=== PATIENT | male | born 1955 | race Caucasian/White ===

== ENCOUNTER 2019-04-18 14:04 | Outpatient (CLI) | payer OTHER, SELFPAY ==
--- NOTE | ~2019-04-18 | XR_ITS ---
EXAMINATION: XR chest 2V EXAM DATE: 04/18/2019 14:34 INDICATION: Left lateral chest pain. TECHNIQUE: Frontal and lateral projections of the chest obtained and reviewed. Comparison is made to prior examination from 02/26/2017. FINDINGS: Patient has diffuse idiopathic skeletal hyperostosis (DISH). The lungs are clear. There a re no pleural effusions. The cardiomediastinal silhouette is within normal limits. There is no pneu mothorax suspected. The bones and soft tissues are unremarkable. IMPRESSION: No acute cardiopulmonary findings. Reviewed, dictated and finalized at location B. 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
== END 2019-04-18 14:05 | disposition home or self-care (01) ==
PROVIDERS: PCP Internal Medicine; Visit Provider Internal Medicine
DX: R07.9 Chest pain, unspecified (principal)
CPT/HCPCS: 71046

== ENCOUNTER 2020-10-08 10:46 | Outpatient (CLI) | payer OTHER, SELFPAY ==
--- NOTE | ~2020-10-08 | XR_ITS ---
EXAMINATION: XR hand LT min 3V DATE: 10/08/2020 11:23 INDICATION: Pain at the base of the left thumb TECHNIQUE: Posteroanterior, oblique and lateral views of the left hand were obtained. COMPARISON: None. FINDINGS: Bone alignment is normal. No fracture. Polyarticular osteoarthritis, mild to moderate severity at the second and third distal interphalangeal joints and minimal to mild at the triscaphe, first carpometa carpal and multiple metacarpophalangeal and interphalangeal joints. No erosions to suggest inflammato ry arthritis. IMPRESSION: 1. 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 Reviewed, dictated and finalized at location A. IMPRESSION: 1. 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
== END 2020-10-08 10:47 | disposition home or self-care (01) ==
LOC: CHSIMG 10:48
PROVIDERS: PCP Internal Medicine; Visit Provider Internal Medicine
DX: M79.645 Pain in left finger(s) (principal)
CPT/HCPCS: 73130

== ENCOUNTER 2021-01-24 10:16 | Outpatient (CLI) | payer OTHER, SELFPAY ==
[2021-01-24 11:16] LABS: Influenza A QL RT-PCR Negative (Negative); Influenza B QL RT-PCR Negative (Negative); SARS-CoV-2 RNA PCR Negative (Negative)
== END 2021-01-24 10:17 | disposition home or self-care (01) ==
LOC: CHSLAB 10:17
PROVIDERS: PCP Internal Medicine; Visit Provider Internal Medicine
DX: J06.9 Acute upper respiratory infection, unspecified (principal); Z20.822 Contact with and (suspected) exposure to COVID-19
CPT/HCPCS: 87502; C9803; U0003; U0005

== ENCOUNTER 2022-03-23 14:53 | Outpatient (CLI) | payer MEDICARE, SELFPAY ==
--- NOTE | ~2022-03-23 | XR_ITS ---
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 RESULT: Lines, tubes, and devices: None. Lungs and pleura: Clear. Cardiomediastinal silhouette: Stable. Other: No acute osseous or upper abdominal finding. IMPRESSION: No acute cardiopulmonary process. Reviewed, dictated and finalized at location K. SERVICE SUPERVISOR
[2022-03-23 15:15] LABS: Basophils Absolute Auto 0.04 K/mm3 (0.00-0.10); Basophils Percent Auto 0.6 % (0.0-1.0); Eosinophils Absolute Auto 0.23 K/mm3 (0.02-0.50); Eosinophils Percent Auto 3.7 % (1.0-6.0); Hematocrit 39.1 % (37.0-46.0); Hemoglobin 13.3 g/dL (12.4-15.3); Immature Granulocyte Absolute 0.03 K/mm3 (0.00-0.00); Immature Granulocyte Percent A 0.5 % (0.0-0.0); Lymphocytes Absolute Auto 1.41 K/mm3 (1.10-4.50); Lymphocytes Percent Auto 22.7 % (18.0-42.0); Mean Corpuscular Hemoglobin 28.2 pg (27.0-31.0); Mean Platelet Volume 12.2 fl (8.7-11.0); Monocytes Absolute Auto 0.62 K/mm3 (0.10-0.90); Neutrophils Absolute Auto 3.9 K/mm3 (1.7-7.2); Neutrophils Percent Auto 62.5 % (50.0-70.0); Platelet Count Result 201 K/mm3 (150-420); Red Blood Count 4.71 M/mm3 (4.70-6.10); Red Cell Distribution Width 15.7 % (11.6-14.4); White Blood Count 6.2 K/mm3 (4.8-10.8)
[2022-03-23 15:19] LABS: Add Urine Microscopic? NO; Appearance Urine Clear (Clear); Bilirubin Urine Negative (Negative); Blood Urine Negative (Negative); Color Urine Light Yellow (Yellow); Glucose Urine UA Negative (Negative); Ketones Urine Negative (Negative); Leukocyte Esterase Ur Negative (Negative); Nitrate Urine Negative (Negative); Protein Urine Negative (Negative); Specific Grav Ur 1.015 (1.010-1.020); Urobilinogen Urine 0.2 mg/dL (0.2-1.0)
[2022-03-23 15:58] LABS: Alanine Aminotransferase 23 U/L (16-63); Albumin Level 3.8 g/dL (3.4-5.0); Alkaline Phosphatase 72 U/L (46-116); Anion Gap 9 mmol/L (8-16); Aspartate Amino Transferase 18 U/L (15-37); Bilirubin,Total 0.6 mg/dL (0.00-1.00); Blood Urea Nitrogen 18 mg/dL (7-18); Calcium 9.1 mg/dL (8.5-10.1); Carbon Dioxide 28 mmol/L (21-32); Chloride 104 mmol/L (98-108); Estimated Glomerular Filt Rate 57; Glucose 98 mg/dL (70-99); Osmolality Calculated 293 mOsm/kg (285-295); Potassium 5.2 mmol/L (3.5-5.1); Sodium 141 mmol/L (136-145)
== END 2022-03-23 14:54 | disposition home or self-care (01) ==
LOC: CHSLAB 14:58
PROVIDERS: PCP Internal Medicine; Visit Provider Internal Medicine
DX: R10.12 Left upper quadrant pain (principal)
CPT/HCPCS: 36415; 71046; 80053; 81003; 85025

== ENCOUNTER 2022-03-24 08:24 | Outpatient (CLI) | payer MEDICARE, SELFPAY ==
--- NOTE | ~2022-03-24 | CT_ITS ---
EXAMINATION: CT abdomen pelvis w con INDICATION: Left upper quadrant and flank pain TECHNIQUE: Computed tomographic images of the abdomen and pelvis were obtained after the administrati on of 100 cc of Omnipaque 350 intravenous contrast. The dose-length product (DLP) was 1505.87 mGy-cm. Automated exposure control and iterative reconstruction technique were employed. COMPARISON: None available FINDINGS: The lung bases are clear. The heart size is normal. The liver, spleen, gallbladder, and adr enal glands are normal. Punctate calcifications of the pancreas are consistent with chronic pancreati tis. Cysts of the kidneys measure up to 8 mm on the left. No pathologically enlarged abdominal or pel monique lymph nodes are identified. There is no free intraperitoneal gas or evidence of bowel obstruction . The appendix is normal. There is severe lumbar spondylosis. IMPRESSION: 1. No CT correlate for the patient's symptoms. Reviewed, dictated and finalized at location L. 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
== END 2022-03-24 08:25 | disposition home or self-care (01) ==
LOC: CHSIMG 08:26
PROVIDERS: PCP Internal Medicine; Visit Provider Internal Medicine
DX: R10.12 Left upper quadrant pain (principal)
CPT/HCPCS: 74177; Q9967

== ENCOUNTER 2022-08-31 11:51 | Outpatient (CLI) | payer MEDICARE, SELFPAY ==
--- NOTE | ~2022-08-31 | XR_ITS ---
EXAMINATION: XR lumbar spine 2-3V DATE: 08/31/2022 12:33 INDICATION: Acute low back pain TECHNIQUE: Anteroposterior and lateral views of the lumbar spine, and cone-down lateral view of the l umbosacral junction were obtained. COMPARISON: 10/17/2015 FINDINGS: Again noted are laminectomies from L2 through L5. There are 14 degrees of lumbar levoscolio sis. There is severe loss of intervertebral disc space height at L3-4 and moderate loss of interverte bral disc space height throughout the remainder of the lumbar spine without change. There are 4 mm of retrolisthesis of L2 on L3 and L3 on L4. The vertebral body heights are maintained. There is no frac ture. Small degenerative osteophytes project from the anterior endplates of multiple vertebral bodies . There is severe facet joint osteoarthritis of the lower lumbar spine. IMPRESSION: 1. Severe lumbar spondylosis without acute findings or significant interval change. Reviewed, dictated and finalized at location B. IMPRESSION: 1. Severe lumbar spondylosis without acute findings or significant interval renate nge.
== END 2022-08-31 11:52 | disposition home or self-care (01) ==
PROVIDERS: PCP Internal Medicine; Visit Provider Internal Medicine
DX: M54.50 Low back pain, unspecified (principal); M43.06 Spondylolysis, lumbar region
CPT/HCPCS: 72100

== ENCOUNTER 2022-09-02 14:39 | Outpatient (CLI) | payer MEDICARE, SELFPAY ==
--- NOTE | ~2022-09-02 | XR_ITS ---
EXAMINATION: XR thoracic spine 3V DATE: 09/02/2022 15:07 INDICATION: Ankylosing spondylitis. Back pain. TECHNIQUE: 3 views of thoracic spine on 4 radiographs were obtained. COMPARISON: CT abdomen and pelvis 03/24/2022 FINDINGS: There is 10 degrees dextroscoliosis of lower thoracic spine. Vertebral body heights are nor mal. There is mildly decreased disc height at multiple levels in thoracic spine. There are bridging e ndplate osteophytes at multiple levels in the spine, consistent with diffuse idiopathic skeletal hype rostosis (DISH). IMPRESSION: 1. Mild thoracic spondylosis. 2. Thoracic dextroscoliosis. 3. DISH. Reviewed, dictated and finalized at location E.
--- NOTE | ~2022-09-02 | XR_ITS ---
EXAMINATION: XR_CERV2-3V_CR DATE: 09/02/2022 15:07 INDICATION: Neck pain. Ankylosing spondylitis. TECHNIQUE: 4 views of cervical spine were obtained. COMPARISON: None. FINDINGS: There is kyphosis of cervical spine. Vertebral body heights are normal. There is mildly dec reased disc height at C3-C4 and C4-C5 and moderately decreased disc height at C5-C6 and C6-C7. There are bulky anterior osteophytes from C4-C5 through C6-C7. There is multilevel uncovertebral joint oste oarthritis, severe on the left at C4-C5 and bilaterally at C5-C6 and C6-C7. There is multilevel mild facet joint osteoarthritis. There is likely facet joint ankylosis at C2-C3. The osseous central spina l canal is developmentally small. No prevertebral soft tissue swelling. IMPRESSION: 1. Moderate cervical spondylosis. Reviewed, dictated and finalized at location E.
== END 2022-09-02 14:40 | disposition home or self-care (01) ==
PROVIDERS: PCP Internal Medicine; Visit Provider Internal Medicine
DX: M45.0 Ankylosing spondylitis of multiple sites in spine (principal); M41.84 Other forms of scoliosis, thoracic region; M48.14 Ankylosing hyperostosis [Forestier], thoracic region
CPT/HCPCS: 72040; 72072

== ENCOUNTER 2022-09-05 10:10 | Outpatient (CLI) | payer MEDICARE, SELFPAY | END 2022-09-05 10:11 | disposition home or self-care (01) | PROVIDERS: PCP Internal Medicine; Visit Provider Internal Medicine | DX: M54.50 Low back pain, unspecified (principal); M54.16 Radiculopathy, lumbar region | CPT/HCPCS: 99199 ==

== ENCOUNTER → 2022-09-09 10:38 | Outpatient (CLI) | payer MEDICARE, SELFPAY ==
--- NOTE | ~2022-09-09 | MR_ITS ---
MRI of the lumbar spine Clinical History: Pain Technique: Axial T2-weighted images, and sagittal T1-weighted, T2-weighted, and and T2 fat-sat images were acquired. COMPARISON: 10/30/2015 Findings: 4 mm retrolisthesis of L2 over L3 present. 5 mm retrolisthesis of L3 over L4 present. No fr acture identified. No suspicious bone marrow signal abnormality. At L1-L2, there is mild diffuse disc bulge and moderate facet arthropathy. No central canal stenosis or definite neural foraminal narrowing. At L2-L3, there is advanced degenerative disc narrowing. There is diffuse disc bulge and moderate to advanced facet arthropathy. L2 laminectomy defect is present. No central canal stenosis. There is sev ere right neural foraminal narrowing, and mild left neural foraminal narrowing. At L3-L4, there is severe degenerative disc narrowing. There is diffuse disc bulge and severe facet a rthropathy. There is posterior laminectomy/decompression, without fausto central canal stenosis. There is severe bilateral neural foraminal narrowing, right worse than left. At L4-L5, there is diffuse disc bulge and advanced facet arthropathy. There is probable mild central canal stenosis despite posterior decompression/lumpectomy. There is severe bilateral neural foraminal narrowing. At L5-S1, there is diffuse disc bulge and moderate to advanced facet arthropathy. There is posterior decompression/laminectomy. No central canal stenosis. There is moderate to advanced left neural jeannine inal narrowing. Right neural foramen preserved. Paravertebral soft tissues are otherwise unremarkable. Impression: 4 mm retrolisthesis of L2 over L3. 5 mm retrolisthesis of L3 over L4. Prior laminectomies of L3, L4, L5. Multilevel severe neural foraminal narrowing, as detailed above. Probable mild central canal stenosis at L4-L5, despite posterior decompression. Reviewed, dictated and finalized at [facility]. Impression: 4 mm retrolisthesis of L2 over L3. 5 mm retrolisthesis of L3 over L4. Prior laminectomies of L3, L4, L5. Multilevel severe neural foraminal narrowing, as detailed above. Probable mild central canal stenosis at L4-L5, despite posterior decompression.
== END ==
PROVIDERS: PCP Internal Medicine; Visit Provider Internal Medicine
DX: M54.50 Low back pain, unspecified (principal); M96.1 Postlaminectomy syndrome, not elsewhere classified
CPT/HCPCS: 72148

== ENCOUNTER 2022-12-10 01:31 | Day surgery (SDC) | payer MEDICARE, SELFPAY ==
[2022-12-01 14:41] VITALS: BMI 40.4
[2022-12-10 06:23] VITALS: BP 162/80; PULSE 65; RESP 20; TEMP 36.2; O2SAT 98; BMI 40.2
[2022-12-10] MEDS: LACTATED RINGERS 1,000 ML 150 ML IV CONT (06:33)
--- NOTE | 2022-12-10 07:26 | P.PNAN_ITS ---
Anes - Initial Pre Proc Eval Procedure: Operation Date: 12/10/22 07:30 Proposed Procedures p Screening Colonoscopy - Milan Arthur DO Date/Time: 12/10/22 07:26 Surgeon: Milan Arthur DO Pre Op Diagnosis: neoplasm screening Patient Data Age: 67 Gender: M Height: 1.8 m Weight: 130.9 kg Last Vital Signs Temp 97.2 F L 12/10/22 06:23 Pulse 65 12/10/22 06:23 Resp 20 12/10/22 06:23 BP 162/80 H 12/10/22 06:23 Pulse Ox 98 12/10/22 06:23 O2 Del Method Room Air 12/10/22 06:23 Allergies Allergy/AdvReac Type Severity Reaction Status Date / Time No Known Allergies Allergy Verified 12/10/22 06:22 Home Medications Medication Instructions Recorded Confirmed Type BuSpar 15 mg PO DAILY 12/01/22 12/10/22 History lisinopril 40 mg tablet 40 mg PO DAILY 12/01/22 12/01/22 History metoprolol succinate 100 mg 100 mg PO DAILY 12/01/22 12/01/22 History tablet,extended release 24 hr nifedipine 60 mg PO BID 12/01/22 12/10/22 History potassium chloride 10 meq BYMOUTH ONCE 12/01/22 12/01/22 History Patient hx anesthesia problems: none Family hx anesthesia problems: none Results Review: All pre-operative results and documents have been reviewed as part of the pre- operative evaluation. PMFSH Social History Social History Smoking status: Never smoker Drinks per week: 1 Substance use type: does not use Living arrangements: with family Spiritual care concerns: No Anes - Eval Final PreProcedure Day of Procedure 12/10/22 07:26 Patient weight: morbidly obese Heart: regular rate and rhythm Lungs: clear to auscultation Airway: Mallampati scale class II Neurological: alert and oriented Last oral intake: >/= 8 hours ASA classification: III Emergent: no Anesthetic plan: proceed Anesthesia type and monitoring: general GIVS and standard monitoring Results Review: All pre-operative results and documents have been reviewed as part of the pre- operative evaluation. Informed Consent: The patient's anesthetic plan and its attendant risks and benefits were discussed with the patient/family/POA. Questions were solicited and answers provided to the satisfaction of the patient/family/POA.
--- NOTE | 2022-12-10 07:28 | PM.IMHP ---
H&P: HPI History of Present Illness Date/Time: 12/10/22 07:28 Chief Complaint: Family history of colon cancer Narrative: This is a 67-year-old man who presents for colonoscopy. His last colonoscopy was about 5 years ago. He has a family history of colon cancer in his father. He denies any hematochezia or melena. He denies any change bowel habits. Review of Systems Review of Systems: All systems reviewed & are unremarkable except as noted in HPI and below Constitutional: Constitutional: Denies chills, Denies fever(s), Denies headache(s) and Denies weight loss Eyes: Eyes: Denies change in vision ENT: Denies dizziness, Denies headache(s), Denies neck mass and Denies throat swelling Cardiovascular: Cardiovascular: Denies chest pain, Denies lightheadedness and Denies dyspnea Respiratory: Respiratory: Denies cough, Denies dyspnea and Denies wheezing Gastrointestinal: Gastrointestinal: Denies abdominal pain, Denies change in bowel habits, Denies nausea and Denies vomiting Genitourinary: Genitourinary: Denies hematuria and Denies dysuria Musculoskeletal: Musculoskeletal: Reports as per HPI Integumentary/Breasts: Skin/Breast: Reports as per HPI Neurologic: Denies dizziness and Denies headache(s) Allergic/Immunologic: Allergic/Immunologic: Denies throat swelling and Denies wheezing PMFSH Social History Social History Smoking status: Never smoker Drinks per week: 1 Substance use type: does not use Living arrangements: with family Spiritual care concerns: No Meds Home Medications and Allergies Home Medications Medication Instructions Recorded Confirmed Type BuSpar 15 mg PO DAILY 12/01/22 12/10/22 History lisinopril 40 mg tablet 40 mg PO DAILY 12/01/22 12/01/22 History metoprolol succinate 100 mg 100 mg PO DAILY 12/01/22 12/01/22 History tablet,extended release 24 hr nifedipine 60 mg PO BID 12/01/22 12/10/22 History potassium chloride 10 meq BYMOUTH ONCE 12/01/22 12/01/22 History Allergies Allergy/AdvReac Type Severity Reaction Status Date / Time No Known Allergies Allergy Verified 12/10/22 06:22 Vital Signs Vital Signs - 24 hr 12/10/22 06:23 Temperature 36.2 C L Pulse Rate 65 Respiratory Rate 20 Blood Pressure 162/80 H Pulse Oximetry 98 Oxygen Delivery Room Air Exam Const: General: no acute distress and alert Orientation/consciousness: patient oriented x3 HENMT: Head: normocephalic and atraumatic Ears: hearing grossly normal bilaterally Face/Nose/Sinus: Normal nares present Mouth: Yes Normal oral and palatal mucosa present Eyes: Periorbital: periorbital findings normal Sclera: sclerae normal EOM: EOMs intact bilaterally Neck: Neck: normal visual inspection, no lymphadenopathy and trachea midline Chest: Chest palpation & inspection: normal inspection of the chest Resp: Effort & Inspection: normal respiratory effort Auscultation: clear to auscultation bilaterally Cardio: Jugular venous distension: no JVD Rate: regular rate Rhythm: regular rhythm Heart sounds: S1 normal heart sound present and S2 normal heart sound present Peripheral pulses: Peripheral pulses 2+ throughout GI: Inspection: normal to inspection GI Palp: Yes Soft to palpation, No Tenderness to palpation present (GI), No Guarding due to palpation present (GI) and No Rebound tenderness present Percussion: Yes normal to percussion Auscultation: normal bowel sounds : General: Yes no CVA tenderness Back/Spine/Pelvis: Back: no CVA tenderness Neuro: General: patient oriented x3, no focal motor deficits and CN's II-XI intact bilaterally Cognition (Neuro): normal cognition Speech: normal speech Motor exam (neuro): 5/5 motor strength present throughout Extrem: General: capillary refill normal and no clubbing, cyanosis or edema Assessment and Plan Assessment and plan (1) Family history of colon cancer: Code(s): Z80.0 - Family history of malignant neoplasm of digestive organs
[2022-12-10 07:50] VITALS: BP 96/52; PULSE 52; RESP 16; O2SAT 94
[2022-12-10 08:00] VITALS: BP 102/60; PULSE 53; RESP 17; O2SAT 98
[2022-12-10 08:10] VITALS: BP 113/67; PULSE 53; RESP 20; O2SAT 98
== END 2022-12-10 08:20 | disposition home or self-care (01) ==
PROVIDERS: PCP Internal Medicine; Visit Provider Surgery
PROC: 0DJD8ZZ Inspection of Lower Intestinal Tract, Via Natural or Artificial Opening Endoscopic (ICD-10-PCS; CPT 45378; principal; 2022-12-10 07:30)
DX: Z12.11 Encounter for screening for malignant neoplasm of colon (principal); D12.4 Benign neoplasm of descending colon; Z80.0 Family history of malignant neoplasm of digestive organs; E66.01 Morbid (severe) obesity due to excess calories; Z68.41 Body mass index [BMI] 40.0-44.9, adult
CPT/HCPCS: 45380; 88305; J2704; J7120

== ENCOUNTER 2024-05-08 08:53 | Outpatient (CLI) | payer MEDICARE, SELFPAY ==
[2024-05-08 09:12] LABS: Basophils Absolute Auto 0.05 K/mm3 (0.00-0.10); Basophils Percent Auto 0.8 % (0.0-1.0); Eosinophils Absolute Auto 0.26 K/mm3 (0.02-0.50); Eosinophils Percent Auto 4.1 % (1.0-6.0); Hematocrit 41.5 % (37.0-46.0); Hemoglobin 13.5 g/dL (12.4-15.3); Immature Granulocyte Absolute 0.02 K/mm3 (0.00-0.00); Immature Granulocyte Percent A 0.3 % (0.0-0.0); Lymphocytes Absolute Auto 1.77 K/mm3 (1.10-4.50); Lymphocytes Percent Auto 27.8 % (18.0-42.0); Mean Corpuscular HGB Conc 32.5 g/dL (32-36); Mean Platelet Volume 11.7 fl (8.7-11.0); Neutrophils Absolute Auto 3.57 K/mm3 (1.70-7.20); Platelet Count Result 227 K/mm3 (150-420); Red Cell Distribution Width 15.8 % (11.6-14.4); White Blood Count 6.4 K/mm3 (4.8-10.8)
[2024-05-08 09:21] LABS: Hemoglobin A1C 5.2 % (<5.7)
[2024-05-08 09:29] LABS: Add Urine Microscopic? NO; Appearance Urine Clear (Clear); Bilirubin Urine Negative (Negative); Blood Urine Negative (Negative); Color Urine Light Yellow (Yellow); Glucose Urine UA Negative (Negative); Ketones Urine Negative (Negative); Leukocyte Esterase Ur Negative (Negative); Nitrate Urine Negative (Negative); Protein Urine Negative (Negative); Urobilinogen Urine 0.2 mg/dL (0.2-1.0)
[2024-05-08 10:31] LABS: Erythrocyte Sedimentation Rate 15 mm/hr (0-20)
[2024-05-08 10:36] LABS: Alanine Aminotransferase 23 U/L (16-63); Albumin Level 3.9 g/dL (3.4-5.0); Alkaline Phosphatase 91 U/L (46-116); Anion Gap 4 mmol/L (4-12); Aspartate Amino Transferase 14 U/L (15-37); Bilirubin,Total 0.6 mg/dL (0.00-1.00); Blood Urea Nitrogen 18 mg/dL (7-18); CRP 0.8 mg/dL (0.0-0.9); Calcium 9.2 mg/dL (8.5-10.1); Carbon Dioxide 32 mmol/L (21-32); Chloride 104 mmol/L (98-108); Cholesterol 220 mg/dL (0-200); Creatine Kinase 103 U/L (39-308); Estimated Glomerular Filt Rate 55; Glucose 96 mg/dL (70-99); HDL Direct 73 mg/dL (40-60); LDL Cholesterol Calculated 122 mg/dL (<130); Osmolality Calculated 291 mOsm/kg (285-295); Prostate Specific Antigen 1.3 ng/mL (< OR = 4.0); Sodium 140 mmol/L (136-145); Total Protein 7.2 g/dL (6.4-8.2); Triglycerides 126 mg/dL (0-150)
== END 2024-05-08 08:54 | disposition home or self-care (01) ==
LOC: CHSLAB 08:56
PROVIDERS: PCP Internal Medicine; Visit Provider Internal Medicine
DX: R73.01 Impaired fasting glucose (principal); I10 Essential (primary) hypertension; E78.2 Mixed hyperlipidemia; M12.80 Other specific arthropathies, not elsewhere classified, unspecified site; Z12.5 Encounter for screening for malignant neoplasm of prostate
CPT/HCPCS: 36415; 80053; 80061; 81003; 82550; 83036; 84153; 85025; 85652; 86140; G0103

== ENCOUNTER 2024-11-02 09:41 | Outpatient (CLI) | payer MEDICARE, SELFPAY ==
[2024-11-02 10:11] LABS: Hematocrit 39.4 % (37.0-46.0); Hemoglobin 13.1 g/dL (12.4-15.3); Mean Corpuscular HGB Conc 33.2 g/dL (32-36); Mean Corpuscular Hemoglobin 27.6 pg (27.0-31.0); Mean Corpuscular Volume 83.1 fL (78.0-102.0); Platelet Count Result 195 K/mm3 (150-420); Red Blood Count 4.74 M/mm3 (4.70-6.10); White Blood Count 6.6 K/mm3 (4.8-10.8)
[2024-11-02 10:22] LABS: Add Urine Microscopic? NO; Appearance Urine Clear (Clear); Glucose Urine UA Negative (Negative); Leukocyte Esterase Ur Negative (Negative); Nitrate Urine Negative (Negative); Specific Grav Ur <= 1.005 (1.010-1.020)
[2024-11-02 10:38] LABS: Hemoglobin A1C 5.2 % (<5.7)
[2024-11-02 10:43] LABS: Alanine Aminotransferase 23 U/L (6-50); Albumin Level 4.4 g/dL (3.5-5.1); Alkaline Phosphatase 64 U/L (38-126); Anion Gap 9 mmol/L (4-12); Aspartate Amino Transferase 33 U/L (17-59); Bilirubin,Total 0.9 mg/dL (0.2-1.3); Blood Urea Nitrogen 19 mg/dL (9-20); CRP 0.8 mg/dL (<1.0); Calcium 9.7 mg/dL (8.4-10.2); Carbon Dioxide 27 mmol/L (22-30); Chloride 102 mmol/L (98-107); Cholesterol 214 mg/dL (0-200); Estimated Glomerular Filt Rate 53; Glucose 100 mg/dL (65-110); HDL Direct 69 mg/dL; Osmolality Calculated 288 mOsm/kg (285-295); Potassium 5.5 mmol/L (3.4-5.0); Sodium 138 mmol/L (137-145); Total Protein 6.9 g/dL (6.3-8.2); Triglycerides 133 mg/dL (<150)
== END 2024-11-02 09:42 | disposition home or self-care (01) ==
PROVIDERS: PCP Internal Medicine; Visit Provider Internal Medicine
DX: I10 Essential (primary) hypertension (principal); E78.2 Mixed hyperlipidemia; R73.01 Impaired fasting glucose; M12.80 Other specific arthropathies, not elsewhere classified, unspecified site
CPT/HCPCS: 36415; 80053; 80061; 81003; 83036; 85027; 85652; 86140

== ENCOUNTER 2024-11-14 15:00 | Outpatient (CLI) | payer MEDICARE, SELFPAY ==
--- NOTE | ~2024-11-14 | XR_ITS ---
XR thoracic spine 3V Indication: BACK PAIN Comparison: None Findings: Moderate loss of vertebral height throughout, no fracture or subluxation. Moderate to severe loss of disc height throughout. Soft tissues unremarkable Impression: No acute abnormality. Reviewed, dictated and finalized at location A. Impression: No acute abnormality.
--- NOTE | ~2024-11-14 | XR_ITS ---
XR lumbar spine 2-3V Indication: BACK PAIN Comparison: None Findings: Levoconvex scoliosis with laminectomy noted. Moderate loss of vertebral height throughout. Grade 1 retrolisthesis L2 on L3 and L3 on L4, no acute fracture. Moderate to severe loss of disc height throughout. Soft tissues unremarkable Impression: No acute abnormality. Reviewed, dictated and finalized at location A. Impression: No acute abnormality.
== END 2024-11-14 15:01 | disposition home or self-care (01) ==
LOC: CHSIMG 15:01
PROVIDERS: PCP Internal Medicine; Visit Provider Nurse Practitioner Family
DX: M54.50 Low back pain, unspecified (principal)
CPT/HCPCS: 72072; 72100

== ENCOUNTER 2024-12-21 10:39 | Outpatient (CLI) | payer MEDICARE, SELFPAY ==
--- NOTE | ~2024-12-21 | XR_ITS ---
PROCEDURE(S): 3 views right knee INDICATION(S): Pain COMPARISON(S): None. TECHNIQUE: 3 radiographic images were submitted for interpretation. FINDINGS: Bones: There are no fractures seen. There is the appearance of sclerosis, mainly on the lateral view, projected over the proximal tibia and fibula. Joints: There are no dislocations identified. There is minimal osteoarthritic type change of the lateral compartment. There are mild such changes in the medial compartment, and perhaps a mild degree in the patellofemoral compartment. There is a mild amount of joint fluid. IMPRESSION: Degenerative change in mild amount of joint fluid possible sclerotic lesion or lesions proximal tibia or fibula. If the patient is symptomatic in this region, obtain MR. Reviewed, dictated and finalized at location A. IMPRESSION: Degenerative change in mild amount of joint fluid possible scleroti c lesion or lesions proximal tibia or fibula. If the patient is symptomatic in this region, obtain MR.
== END 2024-12-21 10:40 | disposition home or self-care (01) ==
PROVIDERS: PCP Internal Medicine; Visit Provider Internal Medicine
DX: M25.561 Pain in right knee (principal); M25.461 Effusion, right knee
CPT/HCPCS: 73562

== ENCOUNTER 2025-02-05 13:59 | Outpatient (CLI) | payer MEDICARE, SELFPAY ==
--- NOTE | ~2025-02-05 | MR_ITS ---
EXAMINATION: MR knee RT wo con DATE: 02/05/2025 14:37 INDICATION: Knee pain TECHNIQUE: Magnetic resonance imaging (MRI) of the knee was performed without intravenous contrast. Sequences included axial PD-weighted FS FSE, coronal PD- weighted FSE and PD-weighted FS FSE, sagittal PD-weighted FSE, and sagittal T2- weighted FS FSE. COMPARISON: None. FINDINGS: No fracture subluxation or dislocation. Moderate tricompartmental osteoarthritic degenerative changes present with several areas of advanced cartilaginous erosion, especially involving the medial compartment and patellofemoral joint. No subchondral cystic changes or osteochondral defects. Small joint effusion. Horizontal tear involving the posterior horn of the medial meniscus extends from the root along the margin and extending anteriorly to the inferior surface. Most of the anterior horn appears intact, mildly displaced anteriorly by joint space narrowing and spur formation. Mild meniscocapsular separation may also be present as seen on coronal image 16 series 5. Small cyst formation present suggesting subacute or chronic component. The lateral meniscus appears intact. The cruciate ligaments appear intact, although the ACL fibers are diminutive and have trace amounts of hyperintense T2-weighted signal. Collateral ligaments intact. Extra articular soft tissues including quadriceps and infrapatellar tendons appear intact. IMPRESSION: 1. Complex medial meniscal tear involving the posterior horn extending from the root to the margin of the anterior horn and including subacute possibly chronic meniscocapsular separation. 2. Advanced osteoarthritic degenerative changes in the medial compartment with milder changes at the patellofemoral joint and lateral joint space. 3. Mildly abnormal signal in the ACL may represent mild sprain or partial- thickness tear. Reviewed, dictated and finalized at location A. [employer] INTERNSHIP IMPRESSION: 1. Complex medial meniscal tear involving the posterior horn extending from the root to the margin of the anterior horn and including subacute possibly chroni c meniscocapsular separation. 2. Advanced osteoarthritic degenerative changes in the medial compartment with milder changes at the patellofemoral joint and lateral joint space. 3. Mildly abnormal signal in the ACL may represent mild sprain or partial-thick ness tear.
== END 2025-02-05 14:00 | disposition home or self-care (01) ==
PROVIDERS: PCP Internal Medicine; Visit Provider Internal Medicine
DX: S83.231A Complex tear of medial meniscus, current injury, right knee, initial encounter (principal); M17.11 Unilateral primary osteoarthritis, right knee; X58.XXXA Exposure to other specified factors, initial encounter
CPT/HCPCS: 73721